=== PATIENT | male | born 1950 | race Caucasian/White ===

== ENCOUNTER 2021-05-14 13:59 | Emergency (ER) | payer MEDICARE ==
[2021-05-14] MEDS ORDERED: MORPHINE SULFATE 4 MG INJ IM ONE (14:17)
[2021-05-14] MEDS ORDERED: MORPHINE SULFATE 4 MG INJ ONE (14:21)
--- NOTE | 2021-05-14 14:33 | ERPHSYRPT ---
- History of Present Illness Time Seen by Provider: 05/14/21 14:03 Source: patient Exam Limitations: no limitations Patient Subjective Stated Complaint: R ankle pain fall last night Triage Nursing Assessment: pt to ED c/o R ankle pain and swelling after fall last night. pt states he caught foot under cabinet and it twisted during fall. now noticing swelling and bruising to lateral R ankle. rates 4/10 pain with walking boot on from home, but 8/10 pain without. Physician History: 70 years old male with multiple medical problems presented in the ER with chief complaint of right ankle and foot pain after he fell and twisted last night. Patient report he is slid while in the bathroom. Since then he is having difficulty weightbearing with associated increasing swelling and pain especially in both malleoli and upper foot. Patient borrowed walking boot from his friend but still unable to put any weight on it. No injury anywhere else. Method of Injury: fell, twisted Occurred: yesterday Quality: sharpness Severity of Pain-Max: severe Severity of Pain-Current: severe Lower Extremities Pain: foot: right, ankle: right Modifying Factors: Improves With: immobilization, rest. Worsens With: movement Associated Symptoms: unable to bear weight Allergies/Adverse Reactions: Iodinated Contrast Media Allergy (Verified 05/14/21 14:21) Home Medications: Gabapentin 300 mg [Neurontin 300 mg] 300 mg PO TID 05/14/21 [History] Lisinopril 20 mg [Zestril 20 MG] 20 mg PO BID 05/14/21 [History] Metoprolol Succinate 100 mg [Toprol Xl 100 MG] 100 mg PO BID 05/14/21 [History] Spironolactone 25 mg [Aldactone 25 MG] 25 mg PO DAILY 05/14/21 [History] Hx Tetanus, Diphtheria Vaccination/Date Given: No Hx Influenza Vaccination/Date Given: Yes Hx Pneumococcal Vaccination/Date Given: Yes Immunizations Up to Date: Yes Travel Risk - International Travel Have you traveled outside of the country in past 3 weeks: No - Coronavirus Screening Are you exhibiting any of the following symptoms?: No Close contact with a COVID-19 positive Pt in past 14-21 Days: No - Vaccine Status Have you recieved a Covid-19 vaccination: No - Review of Systems Constitutional: No Symptoms Eyes: No Symptoms Ears, Nose, & Throat: No Symptoms Respiratory: No Symptoms Cardiac: No Symptoms Abdominal/Gastrointestinal: No Symptoms Genitourinary Symptoms: No Symptoms Musculoskeletal: Injury, Joint Redness, Joint Pain Skin: No Symptoms Psychological: No Symptoms Endocrine: No Symptoms Hematologic/Lymphatic: No Symptoms Immunological/Allergic: No Symptoms - Past Medical History Pertinent Past Medical History: Yes Neurological History: No Pertinent History ENT History: No Pertinent History Cardiac History: Coronary Artery Disease, Hypertension Respiratory History: Bronchitis, COPD, Emphysema Endocrine Medical History: No Pertinent History Musculoskeletal History: Arthritis GI Medical History: Hernia History: No Pertinent History Psycho-Social History: No Pertinent History Male Reproductive Disorders: No Pertinent History Other Medical History: AAA, repaired - Past Surgical History Past Surgical History: Yes Cardiac: CABG Gastrointestinal: Hernia Repair - Social History Smoking Status: Light tobacco smoker How long have you smoked: years Exposure to second hand smoke: No Drug Use: none Patient Lives Alone: No - Nursing Vital Signs Nursing Vital Signs: Initial Vital Signs Temperature 97.1 F 05/14/21 14:10 Pulse Rate 70 05/14/21 14:10 Respiratory Rate 18 05/14/21 14:10 Blood Pressure 173/96 05/14/21 14:10 O2 Sat by Pulse Oximetry 97 05/14/21 14:10 Pain Scale Pain Intensity 8 - Physical Exam General Appearance: no apparent distress, alert, anxiety Eyes, Ears, Nose, Throat Exam: normal ENT inspection, TMs normal, pharynx normal Neck Exam: normal inspection, non-tender, supple, full range of motion Cardiovascular/Respiratory Exam: chest non-tender, normal breath sounds, regular rate/rhythm Gastrointestinal/Abdominal Exam: non-tender, soft Hips Exam: bilateral: non-tender, normal inspection, normal range of motion Legs Exam: bilateral leg: non-tender, normal inspection, normal range of motion Knees Exam: bilateral knee: non-tender, normal inspection, normal range of motion, no evidence of injury Ankle Exam: right ankle: limited range of motion, pain, soft tissue tenderness, swelling, left ankle: non-tender, normal inspection, normal range of motion, no evidence of injury Foot Exam: right foot: bone tenderness (Upper anterior foot), pain, soft tissue tenderness, swelling, left foot: non-tender, normal inspection, normal range of motion, no evidence of injury Neuro/Tendon Exam: normal sensation, normal motor functions, normal tendon functions, responds to pain Mental Status Exam: alert, oriented x 3, cooperative Skin Exam: normal color, warm, dry SpO2 Interpretation: normal SpO2: 97 O2 Delivery: Room Air Ordered Tests: Active Orders 24 hr Category Date Time Status Splint STAT Care 05/14/21 16:06 Completed ANKLE (3 VIEWS) Stat Exams 05/14/21 15:15 Taken FOOT (MINIMUM 3 VIEWS) Stat Exams 05/14/21 15:15 Taken LOWER LEG Stat Exams 05/14/21 15:54 Taken Medication Summary Discontinued Medications Generic Name Dose Route Start Last Admin Trade Name Sreedhar PRN Reason Stop Dose Admin Morphine Sulfate 4 mg 05/14/21 14:17 05/14/21 14:34 Morphine Sulfate 4 Mg Inj IM 05/14/21 14:18 4 mg STAT ONE Administration Morphine Sulfate Confirm 05/14/21 14:21 Morphine Sulfate 4 Mg Inj Administered 05/14/21 14:22 Dose 4 mg .ROUTE .STK-MED ONE - Progress Progress: improved, pain not gone completely, re-examined Progress Note: 05/14/21 15:49 Patient has spinal fracture right lower fibula and a chip fracture medial malleolus. Placed in a posterior splint. Given morphine for symptomatic relief in the ER. We will continue with pain medications to go home, no weightbearing and podiatry follow-up outpatient. 05/14/21 16:42 Intact distal neurovascular after splint placement by RN. Counseled pt/family regarding: diagnosis, need for follow-up, rad results - Departure Departure Disposition: Home Clinical Impression: Ankle fracture, bimalleolar, closed Qualifiers: Encounter type: initial encounter Laterality: right Qualified Code(s): S82.841A - Displaced bimalleolar fracture of right lower leg, initial encounter for closed fracture Condition: Stable Critical Care Time: No Referrals: DOCTOR,NO FAMILY [Primary Care Provider] - GISELA RAZO DPM [ACTIVE STAFF] - (Sunday for reevaluation) Instructions: Ankle Fracture (DC) Additional Instructions: No weightbearing. Take pain medications as needed. Keep it elevated, apply ice. Follow-up with primary care for reevaluation. Return to ER for worsening pain, intractable swelling, difficulty movements of toes are bluish discoloration of toes etc. Prescriptions: Hydrocodone/Acetaminophen [Hydrocodone-Acetamin 7.5-325] 1 each PO Q6HPRN PRN 3 Days #12 tablet MDD 4 PRN Reason: Pain
[2021-05-14 16:27] VITALS: BP 169/93; PULSE 80
[2021-05-14 16:43] VITALS: O2SAT 97
--- NOTE | 2021-05-14 20:08 | XRAY ---
Indication: Pain following fall. Comparison: None 2 view right lower leg demonstrates lateral malleolus fracture reported separately. Elsewhere osteopenia, tiny tibial tuberosity spurring, and moderate scattered vascular calcifications. No other bony, articular, or soft tissue abnormalities.
--- NOTE | 2021-05-14 20:08 | XRAY ---
Indication: Pain following fall. Comparison: None 3 view right ankle demonstrates minimally displaced lateral malleolus [place] fracture with soft tissue swelling. Incidental osteopenia, spurring of plantar calcaneus/distal anterior tibia/medial malleolus, and scattered vascular calcifications.
--- NOTE | 2021-05-14 20:10 | XRAY ---
Indication: Pain following fall. Comparison: None 3 nonweightbearing views right foot demonstrates osteopenia, tiny plantar heel spur, and scattered vascular calcifications. Ankle fracture reported separately.
== END 2021-05-14 16:15 | disposition home or self-care (01) ==
LOC: ED 13:59
DX: S82.841A Displaced bimalleolar fracture of right lower leg, initial encounter for closed fracture (principal); M25.571 Pain in right ankle and joints of right foot; W18.39XA Other fall on same level, initial encounter; Y93.89 Activity, other specified; Y92.9 Unspecified place or not applicable; X50.1XXA Overexertion from prolonged static or awkward postures, initial encounter; Z79.899 Other long term (current) drug therapy
CPT/HCPCS: 73590; 73610; 73630; 96372; 99284; J2270

== ENCOUNTER 2022-03-17 12:00 | Emergency (ER) | payer MEDICARE, BC ==
[2022-03-17 13:04] LABS: Absolute Neutrophil Ct (ANC) 3.54 x10^3/uL (1.4-6.9); Basophil (Absolute #) 0.05 x10^3/uL (0-0.4); Eosinophil % 6.7 % (0.00-5.0); Hematocrit 38.6 % (42-50); Hemoglobin 13.3 g/dL (12.5-18.0); Lymphocyte (Absolute #) 1.23 x10^3/uL (1.0-4.6); Lymphocytes % 20.7 % (24.0-44.0); Mean Cell Volume 92.6 fL (78-100); Mean Corpuscular Hemoglobin 31.9 pg (26-32); Mean Corpuscular Hgb Concent. 34.5 g/dL (32-36); Mean Platelet Volume 8.3 fL (7.5-11.0); Monocyte (Absolute #) 0.65 x10^3/uL (0.0-1.3); Monocytes % 10.9 % (0.0-12.0); Neutrophil % 59.6 % (36.0-66.0); Platelet Count 198 x10^3/uL (150-450); Red Blood Count 4.17 x10^6/uL (4.1-5.6); Red Cell Distribution Width 12.2 % (11.5-14.0)
--- NOTE | 2022-03-17 13:06 | ERPHSYRPT ---
- History of Present Illness Time Seen by Provider: 03/17/22 12:31 Historian: patient Exam Limitations: no limitations Patient Subjective Stated Complaint: pt from infusion center for a pinpoint pressure that comes and goes. pt states it happend the last time he had a picc line placed a month ago. Triage Nursing Assessment: pt from infusion center for a pinpoint pressure that comes and goes. pt states it happend the last time he had a picc line placed a month ago. A&Ox3. no distress. denies sob, nausea, chest pain or any new symptoms. Physician History: 71 years old male with history of coronary artery disease status post CABG, hypertension, hyperlipidemia, nonhealing wound left ankle after surgical intervention currently on antibiotics presented in the ER with chief complaint of chest pain. Patient has PICC line placed and earlier around 10:30 AM by interventional radiology she and since then having intermittent pinpoint pressure/fullness which comes and goes since then without difficulty breathing or palpitation. No radiation. Patient report having similar symptoms last time when he had PICC line placed and improved with removal of PICC line. Patient thinks it is related to PICC line and not cardiac in origin at all. He is reluctant to have any kind of work-up done but agreeable with going 1 set of cardiac enzyme and x-rays. Timing/Duration: today, intermittent, improved Activities at Onset: rest Quality: dullness, pressure Location: substernal Chest Pain Radiation: no radiation Severity of Pain-Max: mild Severity of Pain-Current: mild Modifying Factors: Improves With: nothing Associated Symptoms: denies symptoms Nitro Today/Relief: no nitro taken today Aspirin Treatment Today: no aspirin today Allergies/Adverse Reactions: Iodinated Contrast Media Allergy (Severe, Verified 03/17/22 12:01) "severe blisters and perea the skin off" silver [From [employer]] Allergy (Severe, Verified 03/17/22 12:01) Blisters "perea up the skin Sulfa (Sulfonamide Antibiotics) Adverse Reaction (Severe, Verified 03/17/22 12:01) Blisters Home Medications: Gabapentin [Neurontin 300 mg] 300 mg PO TID 05/14/21 [History] Lisinopril 20 mg [Zestril 20 MG] 20 mg PO BID 05/14/21 [History] Metoprolol Succinate 100 mg [Toprol Xl 100 MG] 100 mg PO BID 05/14/21 [History] Spironolactone 25 mg [Aldactone 25 MG] 25 mg PO DAILY 05/14/21 [History] Hx Tetanus, Diphtheria Vaccination/Date Given: No Hx Influenza Vaccination/Date Given: Yes Hx Pneumococcal Vaccination/Date Given: Yes Travel Risk - International Travel Have you traveled outside of the country in past 3 weeks: No - Coronavirus Screening Are you exhibiting any of the following symptoms?: No Close contact with a COVID-19 positive Pt in past 14-21 Days: No - Vaccine Status Have you recieved a Covid-19 vaccination: No - Review of Systems Constitutional: No Symptoms Eyes: No Symptoms Ears, Nose, & Throat: No Symptoms Respiratory: No Symptoms Cardiac: Chest Pain Abdominal/Gastrointestinal: No Symptoms Genitourinary Symptoms: No Symptoms Musculoskeletal: Joint Pain, Joint Swelling Skin: Skin Lesions Neurological: No Symptoms Endocrine: No Symptoms Hematologic/Lymphatic: No Symptoms - Past Medical History Pertinent Past Medical History: Yes Neurological History: No Pertinent History ENT History: No Pertinent History Cardiac History: Coronary Artery Disease, Hypertension Respiratory History: Bronchitis, COPD, Emphysema Endocrine Medical History: No Pertinent History Musculoskeletal History: Arthritis GI Medical History: Hernia History: No Pertinent History Psycho-Social History: No Pertinent History Male Reproductive Disorders: No Pertinent History Other Medical History: AAA, repaired - Past Surgical History Past Surgical History: Yes Neuro Surgical History: No Pertinent History Cardiac: CABG Respiratory: No Pertinent History Gastrointestinal: Hernia Repair Genitourinary: No Pertinent History Musculoskeletal: Orthopedic Surgery Male Surgical History: No Pertinent History Other Surgical History: states "bipass surgery" , right ankle fx - Social History Smoking Status: Light tobacco smoker How long have you smoked: years Exposure to second hand smoke: No Drug Use: none Patient Lives Alone: No - Nursing Vital Signs Nursing Vital Signs: Initial Vital Signs Temperature 98 F 03/17/22 12:01 Pulse Rate 58 L 03/17/22 12:01 Respiratory Rate 17 03/17/22 12:01 Blood Pressure 166/93 03/17/22 12:01 O2 Sat by Pulse Oximetry 99 03/17/22 12:01 Pain Scale Pain Intensity 0 - Physical Exam General Appearance: no apparent distress, alert Eye Exam: PERRL/EOMI Ears, Nose, Throat Exam: normal ENT inspection Neck Exam: normal inspection (Oh), non-tender, supple, full range of motion Respiratory Exam: wheezing, No respiratory distress, No accessory muscle use, No crackles/rales, No rhonchi Cardiovascular Exam: regular rate/rhythm, normal heart sounds Gastrointestinal/Abdomen Exam: soft, normal bowel sounds Back Exam: normal inspection, normal range of motion Extremity Exam: pelvis stable Neurologic Exam: alert, oriented x 3, cooperative Skin Exam: normal color SpO2 Interpretation: normal SpO2: 99 O2 Delivery: Room Air - Course EKG Interpreted by Me: RATE (59), Sinus Christiano, NORMAL AXIS, NORMAL INTERVALS, Non-specific ST Changes Ordered Tests: Active Orders 24 hr Category Date Time Status CHEST 1 VIEW (PORTABLE) Stat Exams 03/17/22 12:39 Completed CBC W DIFF Stat Lab 03/17/22 12:38 Completed CMP Stat Lab 03/17/22 13:00 Completed NT PRO BNP Stat Lab 03/17/22 13:00 Completed TROPONIN Q3H Lab 03/17/22 13:00 Completed TROPONIN Q3H Lab 03/17/22 14:40 Completed Medication Summary Discontinued Medications Generic Name Dose Route Start Last Admin Trade Name Freq PRN Reason Stop Dose Admin Heparin Sodium (Beef Lung) 500 units 03/17/22 15:41 03/17/22 15:44 Heparin Lock Flush Pf 500 Units/5 Ml Syringe PORT FLUSH 04/16/22 15:40 500 units PRN PRN Administration IV PORT FLUSH Heparin Sodium (Beef Lung) Confirm 03/17/22 15:41 Heparin Lock Flush Pf 500 Units/5 Ml Syringe Administered 03/17/22 15:42 Dose 500 units .ROUTE .[employer] Lab/Rad Data: Laboratory Result Diagrams 03/17/22 12:38 03/17/22 13:00 Laboratory Results 03/17/22 03/17/22 03/17/22 Range/Units 14:40 13:00 13:00 WBC (4.0-10.5) x10^3/uL RBC (4.1-5.6) x10^6/uL Hgb (12.5-18.0) g/dL Hct (42-50) % MCV (78-100) fL MCH (26-32) pg MCHC (32-36) g/dL RDW (11.5-14.0) % Plt Count (150-450) x10^3/uL MPV (7.5-11.0) fL Gran % (36.0-66.0) % Immature Gran % (Auto) (0.00-0.4) % Nucleat RBC Rel Count (0.00-0.1) % Eos # (Auto) (0-0.5) x10^3/uL Immature Gran # (Auto) (0.00-0.03) x10^3u/L Absolute Lymphs (auto) (1.0-4.6) x10^3/uL Absolute Monos (auto) (0.0-1.3) x10^3/uL Absolute Nucleated RBC (0.00-0.01) x10^3u/L Lymphocytes % (24.0-44.0) % Monocytes % (0.0-12.0) % Eosinophils % (0.00-5.0) % Basophils % (0.0-0.4) % Absolute Granulocytes (1.4-6.9) x10^3/uL Basophils # (0-0.4) x10^3/uL Sodium 131 L (137-145) mmol/L Potassium 4.7 (3.5-5.1) mmol/L Chloride 95 L (98-107) mmol/L Carbon Dioxide 27 (22-30) mmol/L Anion Gap 12.8 (5-15) MEQ/L BUN 15 (9-20) mg/dL Creatinine 0.85 (0.66-1.25) mg/dL Estimated GFR > 60.0 ML/MIN Glucose 98 (74-106) mg/dL Calcium 9.1 (8.4-10.2) mg/dL Total Bilirubin 0.50 (0.2-1.3) mg/dL AST 30 (17-59) U/L ALT 31 (0-50) U/L Alkaline Phosphatase 77 (38-126) U/L Troponin I < 0.012 < 0.012 (0.000-0.034) ng/mL NT-Pro-B Natriuret Pep 421 (0-900) pg/mL Serum Total Protein 6.6 (6.3-8.2) g/dL Albumin 3.9 (3.5-5.0) g/dL 03/17/22 Range/Units 12:38 WBC 6.0 (4.0-10.5) x10^3/uL RBC 4.17 (4.1-5.6) x10^6/uL Hgb 13.3 (12.5-18.0) g/dL Hct 38.6 L (42-50) % MCV 92.6 (78-100) fL MCH 31.9 (26-32) pg MCHC 34.5 (32-36) g/dL RDW 12.2 (11.5-14.0) % Plt Count 198 (150-450) x10^3/uL MPV 8.3 (7.5-11.0) fL Gran % 59.6 (36.0-66.0) % Immature Gran % (Auto) 1.3 H (0.00-0.4) % Nucleat RBC Rel Count 0.0 (0.00-0.1) % Eos # (Auto) 0.40 (0-0.5) x10^3/uL Immature Gran # (Auto) 0.08 H (0.00-0.03) x10^3u/L Absolute Lymphs (auto) 1.23 (1.0-4.6) x10^3/uL Absolute Monos (auto) 0.65 (0.0-1.3) x10^3/uL Absolute Nucleated RBC 0.00 (0.00-0.01) x10^3u/L Lymphocytes % 20.7 L (24.0-44.0) % Monocytes % 10.9 (0.0-12.0) % Eosinophils % 6.7 H (0.00-5.0) % Basophils % 0.8 (0.0-0.4) % Absolute Granulocytes 3.54 (1.4-6.9) x10^3/uL Basophils # 0.05 (0-0.4) x10^3/uL Sodium (137-145) mmol/L Potassium (3.5-5.1) mmol/L Chloride (98-107) mmol/L Carbon Dioxide (22-30) mmol/L Anion Gap (5-15) MEQ/L BUN (9-20) mg/dL Creatinine (0.66-1.25) mg/dL Estimated GFR ML/MIN Glucose (74-106) mg/dL Calcium (8.4-10.2) mg/dL Total Bilirubin (0.2-1.3) mg/dL AST (17-59) U/L ALT (0-50) U/L Alkaline Phosphatase (38-126) U/L Troponin I (0.000-0.034) ng/mL NT-Pro-B Natriuret Pep (0-900) pg/mL Serum Total Protein (6.3-8.2) g/dL Albumin (3.5-5.0) g/dL - Progress Progress: improved Air Movement: good Progress Note: 03/17/22 15:25 71-year-old is evaluated for intermittent chest pain after PICC line placement and having similar symptoms last time when he had a PICC line placed in. EKG sinus rhythm without any ST elevation and negative troponins x2, on reevaluation pain is improved. Chest x-ray no acute findings. Does not seem cardiac in nature pain but will recommend outpatient follow-up with primary care and cardiology. Discussed signs symptoms of worsening needing return to ER which he seems understanding. Stable for discharge. Blood Culture(s) Obtained: No Antibiotics given: No Counseled pt/family regarding: lab results, diagnosis, need for follow-up, rad results - Departure Departure Disposition: Home Clinical Impression: Atypical chest pain Condition: Stable Critical Care Time: No Referrals: DOCTOR,NO FAMILY [Primary Care Provider] - Follow Up with PCP/3 days Instructions: Angina (DC) Additional Instructions: Take Tylenol as needed for pain. Follow-up with your primary care and cardiology for reevaluation early next week. Return to ER for any worsening chest pain or if having palpitation/shortness of breath etc.
--- NOTE | 2022-03-17 13:08 | XRAY ---
Indication: Chest pain. Comparison: July 15, 2018. Portable chest again demonstrates chronic lung markings without focal infiltrate, consolidation, or large effusion. Stable right lung and mediastinal calcified granulomas. Heart not enlarged with new right arm PICC line with tip projecting over SVC. Bony thorax intact again with osteopenia, degenerative changes, and moderate dextroscoliosis. Impression: Continued nonacute chest with chronic features.
[2022-03-17 13:25] LABS: ALBUMIN 3.9 g/dL (3.5-5.0); ALKALINE PHOSPHATASE 77 U/L (38-126); ANION GAP 12.8 MEQ/L (5-15); BLOOD UREA NITROGEN 15 mg/dL (9-20); CHLORIDE 95 mmol/L (98-107); Calcium 9.1 mg/dL (8.4-10.2); Carbon Dioxide 27 mmol/L (22-30); Creatinine 1 0.85 mg/dL (0.66-1.25); EST GLOMERULAR FILTRATION RATE > 60.0 ML/MIN; Glucose 98 mg/dL (74-106); NT PRO BNP 421 pg/mL (0-900); Potassium 4.7 mmol/L (3.5-5.1); SGOT/AST 30 U/L (17-59); SGPT/ALT 31 U/L (0-50); SODIUM 131 mmol/L (137-145); Total Protein 6.6 g/dL (6.3-8.2)
[2022-03-17 14:58] VITALS: PULSE 51
[2022-03-17 15:30] VITALS: O2SAT 99
[2022-03-17 15:42] VITALS: BP 159/80
== END 2022-03-17 15:53 | disposition home or self-care (01) ==
LOC: ED 12:00
DX: R07.89 Other chest pain (principal); I10 Essential (primary) hypertension; E78.5 Hyperlipidemia, unspecified; J43.9 Emphysema, unspecified; Z72.0 Tobacco use; Z79.899 Other long term (current) drug therapy; Z28.310 Unvaccinated for COVID-19
CPT/HCPCS: 36415; 36573; 71045; 76937; 77001; 80053; 83880; 84484; 85025; 85610; 85730; 96365; 96523; 99211; 99284; C1769; J0713; J1642

== ENCOUNTER 2022-09-05 03:39 | Emergency (ER) | payer MEDICARE, BC ==
--- NOTE | 2022-09-05 04:39 | ERPHSYRPT ---
- History of Present Illness Time Seen by Provider: 09/05/22 04:35 Source: patient Exam Limitations: no limitations Patient Subjective Stated Complaint: " I woke up this morning with a weird feeling, I felt weak then later I felt disoriented." Triage Nursing Assessment: Pt presents to ER with complaints of generalized fatigue, weakness, and confusion. Pt is alert and oriented x 3 at this time and has raspy intermittent, productive cough with clear sputum. Pt has crackles present in upper and lower right lung. Pt skin is flushed, hot, and dry. Pt is febrile upon arrival with temp 101.4. Pt states is too weak to ambulate and has been sitting in recliner the majority of the day. Pt denies nausea, vomiting, and diarrhea. Physician History: 72-year-old male presents to our ED for evaluation of feeling unwell. Patient awoke today feeling weak. Patient felt fatigued. Patient has a cough. Patient presents via EMS for evaluation of a possible stroke however patient appears to have a viral infection. Patient's feeling unwell is likely a viral infection. Patient has no focal or lateralizing symptoms. No chest pain or shortness of breath. No nausea vomiting or diaphoresis. Symptoms are mild to moderate in intensity. No specific worsening improving factors. Timing/Duration: today Severity: moderate Modifying Factors: Improves With: nothing Associated Symptoms: denies symptoms Allergies/Adverse Reactions: Iodinated Contrast Media Allergy (Severe, Verified 09/05/22 04:03) "severe blisters and perea the skin off" silver [From SilvaSorb] Allergy (Severe, Verified 09/05/22 04:03) Blisters "perea up the skin Sulfa (Sulfonamide Antibiotics) Adverse Reaction (Severe, Verified 09/05/22 04:03) Blisters Home Medications: Gabapentin [Neurontin 300 mg] 300 mg PO TID 05/14/21 [History] Lisinopril 20 mg [Zestril 20 MG] 20 mg PO DAILY 05/14/21 [History] Metoprolol Succinate 100 mg [Toprol Xl 100 MG] 100 mg PO BID 05/14/21 [History] Spironolactone 25 mg [Aldactone 25 MG] 25 mg PO DAILY 05/14/21 [History] Apixaban [Eliquis] 2.5 mg PO BID 09/05/22 [History] Aspirin 81 gm Chew [Baby Aspirin 81 mg Chew] 81 mg PO DAILY 09/05/22 [History] Clopidogrel Bisulfate [Clopidogrel] 75 mg PO DAILY 09/05/22 [History] PANTOPRAZOLE 40 mg Tablet [Protonix 40MG Tablet] 40 mg PO DAILY 09/05/22 [History] Hx Tetanus, Diphtheria Vaccination/Date Given: Yes Hx Influenza Vaccination/Date Given: Yes Hx Pneumococcal Vaccination/Date Given: Yes Immunizations Up to Date: Yes Travel Risk - International Travel Have you traveled outside of the country in past 3 weeks: No - Coronavirus Screening Are you exhibiting any of the following symptoms?: Yes Symptoms: Fever, Cough: New Onset, Shortness of Breath, Headaches/Body Aches/Fatigue Close contact with a COVID-19 positive Pt in past 14-21 Days: No - Vaccine Status Have you recieved a Covid-19 vaccination: No - Review of Systems Constitutional: No Symptoms, No Fever, No Chills Eyes: No Symptoms Ears, Nose, & Throat: No Symptoms Respiratory: No Symptoms, No Cough, No Dyspnea Cardiac: No Symptoms, No Chest Pain, No Edema, No Syncope Abdominal/Gastrointestinal: No Symptoms, No Abdominal Pain, No Nausea, No Vom iting, No Diarrhea Genitourinary Symptoms: No Symptoms, No Dysuria Musculoskeletal: No Symptoms, No Back Pain, No Neck Pain Skin: No Symptoms, No Rash Neurological: No Symptoms, No Dizziness, No Focal Weakness, No Sensory Changes Psychological: No Symptoms Endocrine: No Symptoms Hematologic/Lymphatic: No Symptoms Immunological/Allergic: No Symptoms All Other Systems: Reviewed and Negative - Past Medical History Pertinent Past Medical History: Yes Neurological History: No Pertinent History ENT History: No Pertinent History Cardiac History: Coronary Artery Disease, Hypertension Respiratory History: Bronchitis, COPD, Emphysema Endocrine Medical History: No Pertinent History Musculoskeletal History: Arthritis GI Medical History: Hernia History: No Pertinent History Psycho-Social History: No Pertinent History Male Reproductive Disorders: No Pertinent History Other Medical History: AAA, repaired - Past Surgical History Past Surgical History: Yes Neuro Surgical History: No Pertinent History Cardiac: CABG, Vascular Surgery Respiratory: No Pertinent History Gastrointestinal: Hernia Repair Genitourinary: No Pertinent History Musculoskeletal: Orthopedic Surgery Male Surgical History: No Pertinent History Other Surgical History: states "bipass surgery" , right ankle fx - Social History Smoking Status: Current every day smoker How long have you smoked: years Exposure to second hand smoke: No Drug Use: none Patient Lives Alone: No - Nursing Vital Signs Nursing Vital Signs: Initial Vital Signs Temperature 101.4 F 09/05/22 03:53 Pulse Rate 90 09/05/22 03:53 Respiratory Rate 30 H 09/05/22 03:53 Blood Pressure 149/83 09/05/22 03:53 O2 Sat by Pulse Oximetry 93 L 09/05/22 03:53 Pain Scale Pain Intensity 0 - Physical Exam General Appearance: no apparent distress, alert Eye Exam: PERRL/EOMI, eyes nml inspection Ears, Nose, Throat Exam: normal ENT inspection, TMs normal, pharynx normal, moist mucous membranes Neck Exam: normal inspection, non-tender, supple, full range of motion Respiratory Exam: normal breath sounds, lungs clear, airway intact, No respiratory distress Cardiovascular Exam: regular rate/rhythm, normal heart sounds, normal peripheral pulses Gastrointestinal/Abdomen Exam: soft, normal bowel sounds, No tenderness, No mass Back Exam: normal inspection, normal range of motion, No CVA tenderness, No ve rtebral tenderness Extremity Exam: normal inspection, normal range of motion, pelvis stable Neurologic Exam: alert, oriented x 3, cooperative, normal mood/affect, nml cerebellar function, nml station & gait, sensation nml, No motor deficits Skin Exam: normal color, warm, dry, No rash Lymphatic Exam: No adenopathy SpO2 Interpretation: normal SpO2: 93 O2 Delivery: Room Air - Course Nursing assessment & vital signs reviewed: Yes EKG Interpreted by Me: RATE ([id number]), Sinus Rhythm, NORMAL AXIS, NORMAL INTERVALS - CT Exams Head CT Interpretation: Tele-radiologist Report (No acute intracranial abnormalities) Ordered Tests: Active Orders 24 hr Category Date Time Status Radiology Asst STAT Care 09/05/22 04:55 Active EKG-ER Only STAT Care 09/05/22 04:54 Active IV Insertion STAT Care 09/05/22 04:54 Active Pulse Oximetry (ED) STAT Care 09/05/22 04:54 Active CHEST 1 VIEW (PORTABLE) Stat Exams 09/05/22 04:50 Taken CHEST WITHOUT CONTRAST [CT] Stat Exams 09/05/22 05:40 Taken HEAD WITHOUT CONTRAST [CT] Stat Exams 09/05/22 03:52 Taken BLOOD CULTURE Stat Lab 09/05/22 05:25 Received CBC W DIFF Stat Lab 09/05/22 04:54 Completed CMP Stat Lab 09/05/22 04:54 Completed CULTURE,URINE Stat Lab 09/05/22 06:03 Received Lactic Acid Stat Lab 09/05/22 05:20 Completed UA W/RFX CULTURE Stat Lab 09/05/22 06:03 Completed Respiratory Therapy Assessment DAILY RT 09/05/22 06:31 Active Medication Summary Generic Name Dose Route Start Last Admin Trade Name Freq PRN Reason Stop Dose Admin Sodium Chloride 1,000 mls @ 100 mls/hr 09/05/22 04:45 09/05/22 05:00 Sodium Chloride 0.9% 1000 Ml IV 10/05/22 04:44 100 mls/hr .Q10H SAMANTHA Administration Discontinued Medications Generic Name Dose Route Start Last Admin Trade Name Freq PRN Reason Stop Dose Admin Acetaminophen 975 mg 09/05/22 04:47 09/05/22 05:00 Acetaminophen 325 Mg Tablet PO 09/05/22 04:48 975 mg STAT STA Administration Acetaminophen Confirm 09/05/22 04:57 Acetaminophen 325 Mg Tablet Administered 09/05/22 04:58 Dose 975 mg .ROUTE .STK-MED ONE Albuterol/Ipratropium 3 ml 09/05/22 06:26 09/05/22 06:28 Ipratropium/Albuterol Sulfate 3 Ml Ampul.Neb IH 09/05/22 06:27 3 ml STAT ONE Administration Albuterol/Ipratropium Confirm 09/05/22 06:27 Ipratropium/Albuterol Sulfate 3 Ml Ampul.Neb Administered 09/05/22 06:28 Dose 3 ml IH .STK-MED ONE Ceftriaxone Sodium/Dextrose 2 g in 50 mls @ 100 mls/hr 09/05/22 04:56 2 07:15 Rocephin 2 Gm-D5w 50ml Bag IV 09/05/22 05:25 Infused STAT STA Infusion Azithromycin 500 mg in 250 mls @ 250 mls/hr 09/05/22 04:56 09/05/22 07:15 Zithromax 500 Mg/ 250 Ml Nacl Premix IV 09/05/22 05:55 Infused STAT STA Infusion Ceftriaxone Sodium/Dextrose Confirm 09/05/22 05:05 Rocephin 2 Gm-D5w 50ml Bag Administered 09/05/22 05:06 Dose 2 g in 50 mls @ ud IV .STK-MED ONE Azithromycin Confirm 09/05/22 05:20 Zithromax 500 Mg/ 250 Ml Nacl Premix Administered 09/05/22 05:21 Dose 500 mg in 250 mls @ ud IV .STK-MED ONE Lab/Rad Data: Laboratory Result Diagrams 09/05/22 04:54 09/05/22 04:54 Laboratory Results 09/05/22 09/05/22 09/05/22 Range/Units Unknown 06:03 05:20 WBC (4.0-10.5) x10^3/uL RBC (4.1-5.6) x10^6/uL Hgb (12.5-18.0) g/dL Hct (42-50) % MCV (78-100) fL MCH (26-32) pg MCHC (32-36) g/dL RDW (11.5-14.0) % Plt Count (150-450) x10^3/uL MPV (7.5-11.0) fL Gran % (36.0-66.0) % Immature Gran % (Auto) (0.00-0.4) % Nucleat RBC Rel Count (0.00-0.1) % Eos # (Auto) (0-0.5) x10^3/uL Immature Gran # (Auto) (0.00-0.03) x10^3u/L Absolute Lymphs (auto) (1.0-4.6) x10^3/uL Absolute Monos (auto) (0.0-1.3) x10^3/uL Absolute Nucleated RBC (0.00-0.01) x10^3u/L Lymphocytes % (24.0-44.0) % Monocytes % (0.0-12.0) % Eosinophils % (0.00-5.0) % Basophils % (0.0-0.4) % Absolute Granulocytes (1.4-6.9) x10^3/uL Basophils # (0-0.4) x10^3/uL Sodium (137-145) mmol/L Potassium (3.5-5.1) mmol/L Chloride (98-107) mmol/L Carbon Dioxide (22-30) mmol/L Anion Gap (5-15) MEQ/L BUN (9-20) mg/dL Creatinine (0.66-1.25) mg/dL Estimated GFR ML/MIN Glucose (74-106) mg/dL Lactic Acid 1.8 (0.4-2.0) Calcium (8.4-10.2) mg/dL Total Bilirubin (0.2-1.3) mg/dL AST (17-59) U/L ALT (0-50) U/L Alkaline Phosphatase (38-126) U/L Serum Total Protein (6.3-8.2) g/dL Albumin (3.5-5.0) g/dL Urinalys Dipstick Clnc MAIN LAB Urine Color YELLOW (YELLOW) Urine Appearance CLEAR (CLEAR) Urine pH 6.5 (5-6) Ur Specific [place] 1.025 (1.005-1.025) POC Urine Protein Conf 100 A (Negative) Urine Ketones TRACE A (NEGATIVE) Urine Nitrite NEGATIVE (NEGATIVE) Urine Bilirubin NEGATIVE (NEGATIVE) Urine Urobilinogen 0.2 (0-1) mg/dL Urine Leukocytes NEGATIVE (NEGATIVE) Urine WBC (Auto) NONE (0-5) /HPF Urine RBC (Auto) 3-5 A (0-2) /HPF U Epithel Cells (Auto) NONE (FEW) /HPF Urine Bacteria (Auto) RARE (NEGATIVE) /HPF Urine RBC TRACE-INTACT A (0-5) Kevyn/ul Ur Culture Indicated? YES Urine Glucose NEGATIVE (NEGATIVE) mg/dL Influenza Type A Ag NEGATIVE (NEGATIVE) Influenza Type B Ag NEGATIVE (NEGATIVE) RSV (PCR) NEGATIVE (Negative) SARS-CoV-2 (PCR) NEGATIVE (NEGATIVE) 09/05/22 09/05/22 Range/Units 04:54 04:54 WBC 15.3 H (4.0-10.5) x10^3/uL RBC 4.66 (4.1-5.6) x10^6/uL Hgb 14.6 (12.5-18.0) g/dL Hct 42.5 (42-50) % MCV 91.2 (78-100) fL MCH 31.3 (26-32) pg MCHC 34.4 (32-36) g/dL RDW 12.0 (11.5-14.0) % Plt Count 182 (150-450) x10^3/uL MPV 8.6 (7.5-11.0) fL Gran % 91.0 H (36.0-66.0) % Immature Gran % (Auto) 0.6 H (0.00-0.4) % Nucleat RBC Rel Count 0.0 (0.00-0.1) % Eos # (Auto) 0.08 (0-0.5) x10^3/uL Immature Gran # (Auto) 0.09 H (0.00-0.03) x10^3u/L Absolute Lymphs (auto) 0.35 L (1.0-4.6) x10^3/uL Absolute Monos (auto) 0.83 (0.0-1.3) x10^3/uL Absolute Nucleated RBC 0.00 (0.00-0.01) x10^3u/L Lymphocytes % 2.3 L (24.0-44.0) % Monocytes % 5.4 (0.0-12.0) % Eosinophils % 0.5 (0.00-5.0) % Basophils % 0.2 (0.0-0.4) % Absolute Granulocytes 13.91 H (1.4-6.9) x10^3/uL Basophils # 0.03 (0-0.4) x10^3/uL Sodium 127 L (137-145) mmol/L Potassium 4.4 (3.5-5.1) mmol/L Chloride 92 L (98-107) mmol/L Carbon Dioxide 24 (22-30) mmol/L Anion Gap 14.5 (5-15) MEQ/L BUN 18 (9-20) mg/dL Creatinine 1.12 (0.66-1.25) mg/dL Estimated GFR > 60.0 ML/MIN Glucose 127 H (74-106) mg/dL Lactic Acid (0.4-2.0) Calcium 9.1 (8.4-10.2) mg/dL Total Bilirubin 0.70 (0.2-1.3) mg/dL AST 28 (17-59) U/L ALT 24 (0-50) U/L Alkaline Phosphatase 76 (38-126) U/L Serum Total Protein 7.4 (6.3-8.2) g/dL Albumin 4.2 (3.5-5.0) g/dL Urinalys Dipstick Clnc Urine Color (YELLOW) Urine Appearance (CLEAR) Urine pH (5-6) Ur Specific [place] (1.005-1.025) POC Urine Protein Conf (Negative) Urine Ketones (NEGATIVE) Urine Nitrite (NEGATIVE) Urine Bilirubin (NEGATIVE) Urine Urobilinogen (0-1) mg/dL Urine Leukocytes (NEGATIVE) Urine WBC (Auto) (0-5) /HPF Urine RBC (Auto) (0-2) /HPF U Epithel Cells (Auto) (FEW) /HPF Urine Bacteria (Auto) (NEGATIVE) /HPF Urine RBC (0-5) Kevyn/ul Ur Culture Indicated? Urine Glucose (NEGATIVE) mg/dL Influenza Type A Ag (NEGATIVE) Influenza Type B Ag (NEGATIVE) RSV (PCR) (Negative) SARS-CoV-2 (PCR) (NEGATIVE) - Progress Progress Note: Work-up pending. Patient endorsed Dr. Shepard at approximately 7 AM for final disposition 09/05/22 07:21 - Departure Clinical Impression: Fever Condition: Stable Critical Care Time: No Referrals: DOCTOR,NO FAMILY [NON-STAFF PHY W/O PRIVILEGES] - Follow up/PCP as directed
[2022-09-05] MEDS ORDERED: Sodium Chloride 0.9% 1000 ML 1,000 ML IV SCH (04:45)
[2022-09-05] MEDS ORDERED: TYLENOL 325 MG PO STA (04:47)
[2022-09-05] MEDS ORDERED: ROCEPHIN 2 Gm-D5w 50ML BAG** 2 G/50 ML IVPB IV STA (04:56)
[2022-09-05] MEDS ORDERED: Zithromax 500 MG/ 250 ML NaCl Premix 500 MG/250 ML IVPB IV STA (04:56)
[2022-09-05] MEDS ORDERED: TYLENOL 325 MG ONE (04:57)
[2022-09-05] MEDS ORDERED: Sodium Chloride 0.9% 1000 ML 1,000 ML ONE (04:57)
[2022-09-05 05:05] LABS: Absolute Neutrophil Ct (ANC) 13.91 x10^3/uL (1.4-6.9); Basophil (Absolute #) 0.03 x10^3/uL (0-0.4); Eosinophil % 0.5 % (0.00-5.0); Eosinophil (Absolute #) 0.08 x10^3/uL (0-0.5); Hematocrit 42.5 % (42-50); Hemoglobin 14.6 g/dL (12.5-18.0); Lymphocyte (Absolute #) 0.35 x10^3/uL (1.0-4.6); Lymphocytes % 2.3 % (24.0-44.0); Mean Cell Volume 91.2 fL (78-100); Mean Corpuscular Hemoglobin 31.3 pg (26-32); Mean Corpuscular Hgb Concent. 34.4 g/dL (32-36); Mean Platelet Volume 8.6 fL (7.5-11.0); Monocyte (Absolute #) 0.83 x10^3/uL (0.0-1.3); Monocytes % 5.4 % (0.0-12.0); Platelet Count 182 x10^3/uL (150-450); Red Blood Count 4.66 x10^6/uL (4.1-5.6); White Blood Count 15.3 x10^3/uL (4.0-10.5)
[2022-09-05] MEDS ORDERED: ROCEPHIN 2 Gm-D5w 50ML BAG** 2 G/50 ML IVPB IV ONE (05:05)
[2022-09-05 05:18] LABS: ALBUMIN 4.2 g/dL (3.5-5.0); ALKALINE PHOSPHATASE 76 U/L (38-126); ANION GAP 14.5 MEQ/L (5-15); BLOOD UREA NITROGEN 18 mg/dL (9-20); CHLORIDE 92 mmol/L (98-107); Calcium 9.1 mg/dL (8.4-10.2); Carbon Dioxide 24 mmol/L (22-30); Creatinine 1 1.12 mg/dL (0.66-1.25); EST GLOMERULAR FILTRATION RATE > 60.0 ML/MIN; Glucose 127 mg/dL (74-106); Potassium 4.4 mmol/L (3.5-5.1); SGOT/AST 28 U/L (17-59); SGPT/ALT 24 U/L (0-50); SODIUM 127 mmol/L (137-145); Total Protein 7.4 g/dL (6.3-8.2)
[2022-09-05] MEDS ORDERED: Zithromax 500 MG/ 250 ML NaCl Premix 500 MG/250 ML IVPB IV ONE (05:20)
[2022-09-05 05:23] LABS: INFLUENZA A NEGATIVE (NEGATIVE); INFLUENZA B NEGATIVE (NEGATIVE); RESPIRATORY SYNCTIAL VIRUS NEGATIVE (Negative); SARS-CoV-2 Xpert Express NEGATIVE (NEGATIVE)
[2022-09-05] MEDS ORDERED: DUONEB 0.5-3 MG/3 ml Neb IH ONE ×2 (06:26→06:27)
[2022-09-05 06:41] LABS: Appearance CLEAR (CLEAR); Bilirubin NEGATIVE (NEGATIVE); Glucose NEGATIVE (NEGATIVE); Ketones TRACE (NEGATIVE)
[2022-09-05 06:42] LABS: Bacteria RARE /HPF (NEGATIVE); Dipstick done @ ? MAIN LAB; Nitrite NEGATIVE (NEGATIVE); Ph 6.5 (5-6); Protein,Urine Dip 100 (Negative); RBC TRACE-INTACT Ery/ul (0-5); Specific Gravity 1.025 (1.005-1.025); Urine Cultured Indicated? YES; Urobilinogen 0.2 mg/dL (0-1)
[2022-09-05 07:32] LABS: Slide Review 1 YES
[2022-09-05 08:08] VITALS: BP 113/82; PULSE 71; O2SAT 94
--- NOTE | 2022-09-05 08:47 | XRAY ---
Indication: Dizziness and weakness. "Problems walking." Stroke. Multiple contiguous axial images obtained through the head without contrast. Comparison: January 23, 2022 Age-appropriate global atrophy. No acute intracranial hemorrhage, abnormal extra-axial fluid collection, or mass effect. Fourth ventricle is midline without hydrocephalus. Huntley-white matter differentiation preserved. Bony calvarium intact. Visualized paranasal sinuses and mastoid air cells are clear. Impression: Negative CT head without contrast exam. Comment: Preliminary interpretation made by [facility]. No critical discrepancy.
--- NOTE | 2022-09-05 08:51 | XRAY ---
Indication: Fever and cough. Pneumonia. Comparison: March 17, 2022 Portable chest again demonstrates chronic lung markings and scattered calcified granulomas. No focal infiltrate, consolidation, or large effusion. Heart not enlarged again with CABG. Bony thorax intact again with osteopenia, degenerative changes, and dextroscoliosis. Impression: Continued nonacute chest with chronic features.
--- NOTE | 2022-09-05 08:51 | XRAY ---
Indication: Cough and short of breath. Mass. Multiple contiguous axial images obtained through the chest without contrast. Comparison: None Lungs demonstrates diffuse pulmonary emphysema with biapical subpleural cystic changes. A few scattered tiny calcified granulomas, largest posterior right lower lobe measuring 1 cm. No suspicious pulmonary mass, infiltrate, effusion, or pneumothorax. Heart is not enlarged with CABG. Aorta mildly arteriosclerotic without aneurysm. [place] mediastinal and right hilar calcified nodes. No pathologic mediastinal lymphadenopathy. Bony thorax demonstrates osteopenia, moderate degenerative changes throughout the visualized spine, and mild dextroscoliosis. Limited upper abdomen demonstrates tiny hepatic/splenic calcified granulomas, scattered arteriosclerotic disease, and incompletely visualized 2.6 cm right renal cyst. Impression: 1. Pulmonary emphysema, arteriosclerotic disease, chronic bony findings, right renal cyst, and old granulomatous disease. 2. Remaining CT chest without contrast exam is negative.
== END 2022-09-05 08:17 | disposition home or self-care (01) ==
LOC: ED 03:39
DX: R50.9 Fever, unspecified (principal); D72.829 Elevated white blood cell count, unspecified; E87.1 Hypo-osmolality and hyponatremia; R53.1 Weakness; R53.83 Other fatigue; R05.9 Cough, unspecified; I10 Essential (primary) hypertension; Z79.01 Long term (current) use of anticoagulants; Z79.02 Long term (current) use of antithrombotics/antiplatelets; Z79.899 Other long term (current) drug therapy; Z28.310 Unvaccinated for COVID-19; Z72.0 Tobacco use
CPT/HCPCS: 0241U; 36000; 36415; 70450; 71045; 71250; 80053; 81015; 83605; 85025; 87040; 87086; 93005; 93041; 94640; 94760; 96365; 96367; 99285; J0456; J0696; A9270-GY